=== PATIENT | male | born 1995 | race Caucasian/White ===

== ENCOUNTER → 2017-01-15 | Outpatient (CLI) | payer BC ==
--- NOTE | 2017-01-15 14:33 | RAD ---
EXAM DESCRIPTION: Ankle,Left 3 Views CLINICAL HISTORY: 21 yearsMale, PAIN COMPARISON: None. IMPRESSION: 3 views of the left ankle demonstrate no evidence of acute fracture, dislocation, or destructive osseous lesion. The ankle mortise is symmetric. There is no overt focal soft tissue swelling. Electronically signed by: Logan Mayorga MD 01/15/2017 2:32 PM CDT
== END | disposition home or self-care (01) ==
LOC: RAD 14:05
PROVIDERS: ATTEND Family Medicine
DX: M25.579 Pain in unspecified ankle and joints of unspecified foot (principal)

== ENCOUNTER 2018-01-29 20:02 | Emergency (ER) | payer BC ==
[2018-01-29 20:24] VITALS: O2SAT 99
[2018-01-29] MEDS ORDERED: LACTATED RINGERS 1,000 ML IVS ONE (20:25)
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
[2018-01-29 21:07] VITALS: TEMP 99.6
[2018-01-29 22:04] VITALS: BP 186/104
== END 2018-01-29 22:05 | disposition short-term general hospital (02) ==
LOC: ER 20:02
DX: S01.81XA Laceration without foreign body of other part of head, initial encounter (principal); S12.300A Unspecified displaced fracture of fourth cervical vertebra, initial encounter for closed fracture; F17.220 Nicotine dependence, chewing tobacco, uncomplicated; V86.59XA Driver of other special all-terrain or other off-road motor vehicle injured in nontraffic accident, initial encounter; Y92.79 Other farm location as the place of occurrence of the external cause
CPT/HCPCS: 36415; 70450; 72125; 80053; 80320; 82150; 85025; 85610; 85730; J7120

== ENCOUNTER 2018-07-31 17:38 | Emergency (ER) | payer BC ==
[2018-07-31 17:55] VITALS: TEMP 98
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
[2018-07-31] MEDS ORDERED: LIDOCAINE 1% 2 ML VIAL INJ ONE (20:05)
[2018-07-31] MEDS: AZITHROMYCIN 250 MG TAB PO ONE (20:10)
[2018-07-31] MEDS: CIPROFLOXACIN 500 MG TAB PO ONE (20:10)
[2018-07-31] MEDS: traMADol HCL 50 MG TAB PO ONE (20:25)
[2018-07-31 20:40] VITALS: BP 155/90; O2SAT 99
== END 2018-07-31 20:41 | disposition home or self-care (01) ==
LOC: ER 17:38
DX: N39.0 Urinary tract infection, site not specified (principal); Z87.891 Personal history of nicotine dependence
CPT/HCPCS: 81001; 87086; 87491; 87591; J0696; Q0144

== ENCOUNTER → 2020-05-10 | Outpatient (CLI) | payer BC ==
--- NOTE | 2020-05-13 09:29 | MRI ---
EXAM DESCRIPTION: Cervical Spine: MRI. CLINICAL HISTORY: 24 years Male CERVICAL ROOT DISORDERS NOT ELSEWHERE CLASSIFIED. COMPARISON: MRI scan cervical spine without contrast May 2013. TECHNIQUE: Multiplanar, high-field MRI, multiple sequences, non-contrast Cervical spine. Technically difficult study due to patient motion and swallowing. FINDINGS: C3-C4: Normal signal in the disc with disc space preserved. Tiny posterior midline bulge but not abutting the cord. Arthrosis in the left facet joint with hypertrophy narrowing the left neuroforamen. This has progressed since the prior study. Mild canal narrowing with right neuroforamen patent. C4-C5: Disc space preserved with minimal disc desiccation. Tiny posterior midline bulge not abutting the cord. Small uncinate spur on the right. Right neural foraminal narrowing. This has progressed since the prior study. Bilateral facet joints are unremarkable. Canal and left neuroforamen are patent. C5-C6: Disc space preserved with desiccated signal in the disc. No bulging. Right uncinate spur and right neural foraminal narrowing. No definite nerve impingement. This is progressed since the prior study. Canal and left neuroforamen are patent. Normal signal in the C2-C3 disc and remaining discs with no bulging. Disc spaces preserved. Canal and neural foramina are patent. Facet joints unremarkable. Spinal alignment arthrosis C2-C6.. No cord compression or cord edema. Atlantoaxial joint minimal effusion.. Base of the cerebellar tonsils is above the foramen magnum. Paravertebral soft tissues unremarkable. Vertebral bodies are not compressed at any level. Otherwise normal marrow signal in the remaining vertebral bodies and the posterior elements. IMPRESSION: 1. Multiple levels of disc desiccation uncinate spurs and canal and neural foraminal narrowing. This is progressed since the prior study. No canal or neuroforaminal stenosis or definitive nerve impingement. Technically limited and difficult study due to patient motion and swallowing. 2. Please see above FINDINGS for results at specific disc space levels. Electronically signed by: Roger Peralta MD 05/13/2020 9:27 AM CDT
== END ==
LOC: MRI 09:05
PROVIDERS: ATTEND Family Medicine
DX: G54.2 Cervical root disorders, not elsewhere classified (principal); M25.78 Osteophyte, vertebrae